=== PATIENT | male | born 1990 | race Asian ===

== ENCOUNTER 2024-10-31 09:17 | Inpatient (IN) | payer OTHER ==
[2024-10-31 09:57] VITALS: BMI 23.0
[2024-10-31] MEDS ORDERED: IBUPROFEN 600 MG TABLET (FP) PO PRN (10:38)
[2024-10-31] MEDS ORDERED: MAGNESIUM HYDROX 2400MG/30ML ORAL SUSPENSION 30 ML CUP PO PRN (10:38)
[2024-10-31] MEDS ORDERED: NALOXONE (NARCAN) HCL 4 MG/0.1 ML SPRAY NS PRN (10:38)
[2024-10-31] MEDS ORDERED: BENZOCAINE/MENTHOL (CHLORASEPTIC ) LOZENGE MM PRN (10:38)
[2024-10-31] MEDS ORDERED: POLYETHYLENE GLYCOL (HEALTHYLAX) 3350 17 GM PACKET PO PRN (10:38)
[2024-10-31] MEDS ORDERED: BENZONATATE 200 MG CAPSULE PO PRN (10:38)
[2024-10-31] MEDS ORDERED: guaiFENesin 600 MG TABLET.ER (FP) PO PRN (10:38)
[2024-10-31] MEDS ORDERED: IBUPROFEN 400 MG TABLET (FP) PO PRN (10:38)
[2024-10-31] MEDS ORDERED: ACETAMINOPHEN 325 MG TABLET (FP) PO PRN (10:38)
[2024-10-31] MEDS ORDERED: ONDANSETRON *ODT* 4 MG TABLET SL PRN (10:38)
[2024-10-31] MEDS: NALTREXONE HCL 50 MG TABLET PO ONE (11:33)
[2024-10-31] MEDS: METHOCARBAMOL 500 MG TABLET PO PRN (11:42)
[2024-10-31] MEDS: hydrOXYzine PAMOATE 25 MG CAPSULE (FP) PO PRN (11:42)
[2024-10-31] MEDS: traZODone HCL 50 MG TABLET (FP) PO PRN (22:16)
[2024-10-31] MEDS: THIAMINE 100 MG TABLET PO SCH (22:16)
[2024-10-31] MEDS: GABAPENTIN 300 MG CAPSULE PO SCH (22:16)
[2024-10-31] MEDS: MELATONIN 5 MG TABLETS PO SCH (22:16)
[2024-11-01] MEDS: PRENATAL VITAMINS W/ FOLIC ACID TABLET (FP) PO SCH (10:01)
[2024-11-01] MEDS: NALTREXONE HCL 50 MG TABLET PO SCH (10:02)
[2024-11-01 11:45] LABS: RDW 13.0 % (12.0-15.6)
[2024-11-01 11:47] LABS: IMMATURE PLATELET FRACTION # 3.50 x10^3/uL; MCHC 33.8 g/dl (32.3-36.5); MEAN CELL VOLUME 84.9 fl (79.0-92.2); MEAN PLT VOLUME 10.0 fl (9.4-12.4)
[2024-11-01 12:11] LABS: CO2 31.0 mmol/L (21-32)
[2024-11-01 12:12] LABS: GLUCOSE,RANDOM 233.0 mg/dL (74-106)
[2024-11-01 12:14] LABS: SGOT/AST 422.0 U/L (15-37); SGPT/ALT 380.0 U/L (13-61)
[2024-11-01 12:15] LABS: CREATININE 1.0 mg/dL (0.55-1.3)
[2024-11-01 12:16] LABS: TOT PROT 7.6 g/dl (6.4-8.2)
[2024-11-01 12:17] LABS: ALK PHOS 34.0 U/L (45-117)
[2024-11-01] MEDS: LOPERAMIDE HCL 2 MG CAPSULE PO PRN (15:02)
[2024-11-01] MEDS: BISMUTH SUBSALICYLATE 524 MG/30 ML PO PRN (20:04)
[2024-11-01] MEDS: levETIRAcetam 500 MG TABLET (FP) PO SCH (22:23)
[2024-11-02] MEDS: MAG HYDROX/AL HYDROX/SIMETH 30 ML UNIT-DOSE CUP PO PRN (10:11)
[2024-11-02] MEDS: DICYCLOMINE HCL 10 MG CAPSULE PO PRN (13:18)
[2024-11-03 10:38] LABS: SGOT/AST 78.0 U/L (15-37); SGPT/ALT 212.0 U/L (13-61)
[2024-11-03 10:39] LABS: TOT PROT 6.9 g/dl (6.4-8.2)
[2024-11-03 10:41] LABS: ALK PHOS 30.0 U/L (45-117)
[2024-11-05 05:58] VITALS: RESP 16
[2024-11-05 08:46] VITALS: BP 111/78; PULSE 99; TEMP 98.2
== END 2024-11-05 09:45 | disposition home or self-care (01) | DRG 775 ==
LOC: YASAS 09:17 → Y6N 11:04
PROVIDERS: ADMIT Family Medicine; ATTEND Allergy & Immunology
PROC: HZ2ZZZZ Detoxification Services for Substance Abuse Treatment (ICD-10-PCS; principal; 2024-10-31)
DX: F10.230 Alcohol dependence with withdrawal, uncomplicated (principal)
CPT/HCPCS: 36415; 71046-TC-FY; 80053; 80076; 80305; 80307; 82962; 83036; 85027; 86780; 93005; 93010